=== PATIENT | female | born 1975 | race Caucasian/White ===

== ENCOUNTER 2018-07-16 19:49 | Emergency (ER) | payer MEDICARE, MEDICAID ==
[2018-07-16] MEDS ORDERED: Simethicone 80 MG Tab.Chew PO ONE (20:35)
--- NOTE | 2018-07-16 20:50 | EDM.PDOC ---
ED HPI GENERAL MEDICAL PROBLEM - General Chief Complaint: Abdominal Pain Stated Complaint: ABDOMINAL PAIN Time Seen by Provider: 07/16/18 20:35 History Limitations: Reports: No Limitations - History of Present Illness INITIAL COMMENTS - FREE TEXT/NARRATIVE: This patient complains of abdominal pain. Started about 1 PM today. She had a little diarrhea earlier this morning she's had some dry heaves this afternoon. She said that she's had a couple of hernia mesh surgeries in the past. She had a bowel obstruction about a year ago and was treated in [place]. She said it feels about the same as it did when her bowels were obstructed. Abdominal Pain Score (Numeric/FACES): 8 - Related Data Allergies Allergy/AdvReac Type Severity Reaction Status Date / Time No Known Allergies Allergy Verified 07/16/18 20:05 Home Meds: Home Meds Cyanocobalamin (Vitamin B12) [Vitamin B12] 1,000 mcg PO DAILY 01/28/13 [History] DULoxetine [Cymbalta] 120 mg PO DAILY 01/28/13 [History] Ferrous Fumarate/Vit C/B12-IF [Fetrin Capsule SA] 1 cap PO DAILY 01/28/13 [ History] Multivitamin [Multiple Vitamins] 1 each PO DAILY 01/28/13 [History] Vitamin B Complex [B Complex] 1 each PO DAILY 01/28/13 [History] Lurasidone HCl [Latuda] 120 mg PO BEDTIME 07/16/18 [History] SitaGLIPtin [Januvia] 50 mg PO DAILY 07/16/18 [History] Zolpidem Tartrate [Ambien] 10 mg PO BEDTIME 07/16/18 [History] metFORMIN [Glucophage XR] 1,000 mg PO BIDMEALS 07/16/18 [History] Past Medical History HEENT History: Reports: Impaired Vision Cardiovascular History: Reports: Arrhythmia, Heart Murmur, High Cholesterol Gastrointestinal History: Reports: Bowel Obstruction 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: Musculoskeletal History: Reports: Fracture Neurological History: Reports: Cerebral Palsy Psychiatric History: Reports: ADHD, Anxiety, Bipolar, Depression, PTSD Endocrine/Metabolic History: Reports: Diabetes, Type II Hematologic History: Reports: B12 Deficiency, Folic Acid, Iron Deficiency - Past Surgical History HEENT Surgical History: Reports: Tonsillectomy GI Surgical History: Reports: Bariatric Procedure, Hernia Repair/Other Musculoskeletal Surgical History: Reports: Other (See Below) Other Musculoskeletal Surgeries/Procedures:: achilles tendons lengthened Social & Family History - Tobacco Use Smoking Status *Q: Never Smoker - Caffeine Use Caffeine Use: Reports: Coffee - Recreational Drug Use Recreational Drug Use: No ED ROS GENERAL - Review of Systems Review Of Systems: ROS reveals no pertinent complaints other than HPI. ED EXAM, GI/ABD - Physical Exam Exam: See Below Exam Limited By: No Limitations General Appearance: Alert, No Apparent Distress GI/Abdominal Exam: Normal Bowel Sounds, Soft, Non-Tender, No Distention, Other ( There seems to be just a little increased gas on percussion but otherwise the abdomen is is completely nontender nothing that suggest an obstruction) Extremities: Normal Inspection Course - Vital Signs Last Recorded V/S: Last Vital Signs Temp 37.2 C 07/16/18 20:10 Pulse 81 07/16/18 20:10 Resp 16 07/16/18 20:10 BP 160/99 H 07/16/18 20:10 Pulse Ox 99 07/16/18 20:10 - Orders/Labs/Meds Meds: Medications Discontinued Medications Generic Name Dose Route Start Last Admin Trade Name Horacio PRN Reason Stop Dose Admin Simethicone 160 mg 07/16/18 20:35 07/16/18 20:43 Simethicone PO 07/16/18 20:36 160 mg ONETIME ONE Administration - Re-Assessments/Exams Free Text/Narrative Re-Assessment/Exam: 07/16/18 20:49 She received 6 160 mg of simethicone Departure - Departure Time of Disposition: 20:49 Disposition: Home, Self-Care 01 Condition: Fair Clinical Impression: Abdominal pain - Discharge Information Referrals: Naya Melara MD [Primary Care Provider] - Additional Instructions: There are abdominal pain seems to be from a little bit of increased intestinal gas but there is nothing that suggests an obstruction. Try using the medication simethicone or Gas-X. Just follow package instructions.
== END 2018-07-16 21:03 | disposition home or self-care (01) ==
LOC: JP.ED 19:49
DX: R10.9 Unspecified abdominal pain (principal); E78.00 Pure hypercholesterolemia, unspecified; E11.9 Type 2 diabetes mellitus without complications; F41.9 Anxiety disorder, unspecified; F31.9 Bipolar disorder, unspecified; Z79.84 Long term (current) use of oral hypoglycemic drugs; Z79.899 Other long term (current) drug therapy
CPT/HCPCS: 99283; A9270